=== PATIENT | male | born 1990 | race Two or more races ===

== ENCOUNTER 2023-02-09 04:42 | Emergency (ER) | payer MEDICAID, OTHER ==
[~2023-02-09] VITALS: Ht 185.4 cm; Wt 95.3 kg
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
[2023-02-09] MEDS ORDERED: KETOROLAC TROMETHAMINE INJ 60 MG/2 ML VIAL IM ONE (05:30)
--- NOTE | 2023-02-09 05:34 | NUR ---
LEFT FOR CT
--- NOTE | 2023-02-09 06:38 | NUR ---
Patient discharged to home in stable condition. Written and verbal after care instructions given. Patient verbalizes understanding of instruction.
[2023-02-09 06:41] VITALS: BP 130/79
== END 2023-02-09 06:41 | disposition home or self-care (01) ==
LOC: ER 04:44
DX: M54.50 Low back pain, unspecified (principal); F17.200 Nicotine dependence, unspecified, uncomplicated; V49.9XXA Car occupant (driver) (passenger) injured in unspecified traffic accident, initial encounter; Y93.89 Activity, other specified; Y92.89 Other specified places as the place of occurrence of the external cause; Y99.8 Other external cause status
CPT/HCPCS: 72131-TC